=== PATIENT | female | born 1975 | race Caucasian/White ===

== ENCOUNTER 2017-09-13 02:56 | Emergency (ER) | payer OTHER ==
[~2017-09-13] VITALS: Ht 167.6 cm; Wt 88.7 kg
[~2017-09-13 02:56] MED LIST: ALPRAZOLAM0.25 M2 PO; CLEOCIN300 MG PO; CLINDAMYCIN HC300 MG PO; COLACE50 MG PO; ENDOCET 5-3251 EACH PO; EPIPEN ADU0.3 MG/0.3 IM; ESCITALOPRAM OX10 MG PO; HYOSCYAMINE0.375 MG PO; IBUPROFEN800 MG PO; LEVOTHYROXINE25 MCG PO; LEXAPRO10 MG PO; LEXAPRO20 MG PO; MOTRIN800 MG PO; NICOTINE PATCH1 EAC2 TD; ONDANSETRON ODT4 MG PO; PAMPRIN MAX1 TABLET PO; PANTOPRAZOLE SO40 MG PO; PERCOCET 5/31 TABLET PO; PROAIR HFA8.5 GM IH; PROMETHAZI25 MG/1 M2 PO; PROTONIX40 MG PO; TYLENOL EXTRA500 MG PO; ULTRAVATE15 G1 TP; XANAX0.25 MG PO; ZANTAC300 MG PO; ZOFRAN ODT4 MG PO
[2017-09-13 03:41] LABS: HEMATOCRIT 36.7 % (36.0-46.0); MCH 27.9 PG (29.0-34.0); MCV 84.6 FL (83-99); MEAN PLAT.VOLUME 9.7 uM^3 (9.5-12.4); PLATELET COUNT 283 K/uL (156-360); RBC DIS.WIDTH-CV 13.2 % (11.8-14.6); RBC DIS.WIDTH-SD 40.6 % (39-53); RED BLOOD COUNT 4.34 M/uL (3.80-5.20); WHITE BLOOD COUNT 9.9 K/uL (4.1-10.2)
[2017-09-13 03:49] LABS: ADD MIUA? YES; BILIRUBIN NEGATIVE; BLOOD MODERATE; COLOR YELLOW ((YELLOW)); GLUCOSE (STRIP) NEGATIVE; KETONES NEGATIVE; LEUKOCYTES TRACE; NITRITE NEGATIVE; PROTEIN (STRIP) NEGATIVE; SPECIFIC GRAVITY 1.014 (1.000-1.030); UROBILINOGEN 0.2 MG/DL (0.2-1.0)
[2017-09-13 03:52] LABS: CHLORIDE 109 mEq/L (99-109); POTASSIUM 3.4 mEq/L (3.7-5.4); SODIUM 139 mEq/L (136-147)
[2017-09-13 03:54] LABS: GLUCOSE 106 mg/dL (70-99)
[2017-09-13 03:55] LABS: ANION GAP 11 MEQ/L (2-14)
[2017-09-13 03:58] LABS: GFR ESTIMATE (CALCULATED) > 59 mL/min/
[2017-09-13 03:59] LABS: UREA NITROGEN (BUN) 8 mg/dL (9-23)
[2017-09-13 04:00] LABS: BACTERIA RARE /HPF; EPITHELIAL CELLS RARE /HPF; MUCUS TRACE /LPF; UCUL ADDED? YES; WHITE BLOOD CELLS 20-30 /HPF (0-5)
[2017-09-13 04:06] LABS: QUANTITATIVE HCG < 4.0 MIU/ML
[2017-09-13] MEDS ORDERED: KEFLEX500 MG PO (04:39)
[2017-09-13 05:17] VITALS: BP 122/60
== END 2017-09-13 05:18 | disposition home or self-care (01) ==
LOC: EME 02:56
PROVIDERS: Emergency Medicine
DX: N10 Acute pyelonephritis (principal); R51 Headache; E03.9 Hypothyroidism, unspecified; J45.909 Unspecified asthma, uncomplicated; Z88.0 Allergy status to penicillin; F17.200 Nicotine dependence, unspecified, uncomplicated
CPT/HCPCS: 74176; 80048; 81003; 83605; 84702; 85027; 87086; 99281; 99285; J0696; J2270; J2405; J7030; J7050